=== PATIENT | female | born 1970 | race Caucasian/White ===

== ENCOUNTER 2021-01-01 00:39 | Emergency (ER) | payer BC ==
[2021-01-01 00:48] VITALS: BP 155/101; PULSE 84; TEMP 98.2; BMI 22.6
[2021-01-01] MEDS ORDERED: KETOROLAC TROMETHAMINE 60 MG/2 ML VIAL IM ONE (01:20)
[2021-01-01] MEDS ORDERED: CYCLOBENZAPRINE HCL 5 MG TABLET PO STA (01:20)
[2021-01-01] MEDS ORDERED: KETOROLAC TROMETHAMINE 60 MG/2 ML VIAL ONE (01:28)
[2021-01-01] MEDS ORDERED: CYCLOBENZAPRINE HCL 10 MG TABLET (FP) ONE (01:28)
== END 2021-01-01 01:32 | disposition home or self-care (01) ==
LOC: FER 00:39
PROC: 3E023GC Introduction of Other Therapeutic Substance into Muscle, Percutaneous Approach (ICD-10-PCS; principal; 2021-01-01)
DX: M25.512 Pain in left shoulder (principal)
CPT/HCPCS: 93005; 99284-25